=== PATIENT | female | born 1970 | race African-American/Black ===

== ENCOUNTER → 2017-08-22 | Outpatient (CLI) | payer MEDICARE ==
[~2017-08-22] MED LIST: ATIVAN 1MG T1 MG/TAB; COENZYME Q-10100 MG; DEPAKOTE500 MG PO; DESYREL 50MG50 MG PO; DUO-KAPS1 CAP; FLEXERIL 1010 MG/TAB; FLEXERIL 1010 MG/TAB PO; FLEXERIL10 MG PO; IMITREX 25MG TA25 MG; IRON324 M1; LEVAQUIN 750MG750 M1 PO; NORCO 325 MG-51 TAB PO; OMEGA 31000 MG; POTASSIUM75 MG; STOOL SOFTENER100 M2; TOPAMAX 100MG100 M1 PO; ULTRAM 50MG TAB50 MG; VENTOLIN0.09 MG IH; VITAMIN C500 MG; VITAMIN D8000 IU/ML; ZOCOR 20MG20 MG PO
== END ==
LOC: SUN.DIA 15:01
DX: E11.9 Type 2 diabetes mellitus without complications (principal); E78.5 Hyperlipidemia, unspecified; E66.9 Obesity, unspecified; Z68.29 Body mass index [BMI] 29.0-29.9, adult; Z71.3 Dietary counseling and surveillance
CPT/HCPCS: G0108

== ENCOUNTER 2017-08-26 18:36 | Emergency (ER) | payer MEDICARE ==
[~2017-08-26] VITALS: Ht 170.2 cm; Wt 85.0 kg
[2017-08-26 19:02] VITALS: TEMP 97.7
[2017-08-26] MEDS ORDERED: GLUCOPHAGE1000 MG PO (19:08)
[2017-08-26 22:05] VITALS: BP 140/95; PULSE 91
== END 2017-08-26 22:09 | disposition home or self-care (01) ==
LOC: COL.ER 18:36
DX: G43.909 Migraine, unspecified, not intractable, without status migrainosus (principal); E11.9 Type 2 diabetes mellitus without complications; I10 Essential (primary) hypertension; Z85.848 Personal history of malignant neoplasm of other parts of nervous tissue; Z79.84 Long term (current) use of oral hypoglycemic drugs
CPT/HCPCS: J0780; J1200; J3475; J7030

== ENCOUNTER → 2017-08-30 | Outpatient (CLI) | payer MEDICARE ==
[~2017-08-30] MED LIST changes: +GLUCOPHAGE1000 MG PO
== END ==
LOC: SUN.DIA 11:01
DX: E11.9 Type 2 diabetes mellitus without complications (principal); E78.5 Hyperlipidemia, unspecified; E66.9 Obesity, unspecified; Z68.29 Body mass index [BMI] 29.0-29.9, adult; Z71.3 Dietary counseling and surveillance

== ENCOUNTER → 2017-09-27 | Outpatient (CLI) | payer MEDICARE | LOC: SUN.DIA 12:06 | DX: E11.9 Type 2 diabetes mellitus without complications (principal); E78.5 Hyperlipidemia, unspecified; E66.9 Obesity, unspecified; Z68.29 Body mass index [BMI] 29.0-29.9, adult; Z71.3 Dietary counseling and surveillance ==

== ENCOUNTER 2017-10-12 23:42 | Emergency (ER) | payer MEDICARE ==
[~2017-10-12] VITALS: Ht 170.2 cm; Wt 85.0 kg
[2017-10-12 23:53] VITALS: TEMP 97
[2017-10-12] MEDS ORDERED: IMITREX50 MG PO (23:58)
[2017-10-13 03:31] VITALS: BP 164/104; PULSE 80
== END 2017-10-13 03:31 | disposition home or self-care (01) ==
LOC: COL.ER 23:42
DX: G43.909 Migraine, unspecified, not intractable, without status migrainosus (principal); E11.9 Type 2 diabetes mellitus without complications; E78.5 Hyperlipidemia, unspecified; Z79.84 Long term (current) use of oral hypoglycemic drugs
CPT/HCPCS: J0780; J1200; J1885; J3475; J7030

== ENCOUNTER 2018-10-19 17:34 | Emergency (ER) | payer MEDICARE ==
[~2018-10-19] VITALS: Ht 170.2 cm; Wt 81.8 kg
[~2018-10-19 17:34] MED LIST changes: +IMITREX50 MG PO
[2018-10-19 18:12] VITALS: BP 186/105; PULSE 101; TEMP 98.5
== END 2018-10-19 22:06 | disposition left against medical advice (07) ==
LOC: COL.ER 17:34
DX: G43.909 Migraine, unspecified, not intractable, without status migrainosus (principal); Z79.84 Long term (current) use of oral hypoglycemic drugs

== ENCOUNTER → 2021-03-10 | Outpatient (CLI) | payer MEDICARE | LOC: DIA.ED 12:41 | DX: E11.65 Type 2 diabetes mellitus with hyperglycemia (principal); Z79.4 Long term (current) use of insulin; E78.5 Hyperlipidemia, unspecified | CPT/HCPCS: G0108 ==

== ENCOUNTER 2022-11-10 14:30 | Outpatient (RCR) | payer OTHER | END 2022-11-11 | disposition home or self-care (01) | LOC: MKS.ESL.PT | DX: M54.42 Lumbago with sciatica, left side (principal); G89.29 Other chronic pain; I69.30 Unspecified sequelae of cerebral infarction ==

== ENCOUNTER 2022-12-08 13:15 | Outpatient (RCR) | payer MEDICARE | END 2022-12-11 | disposition home or self-care (01) | LOC: MKS.ESL.PT | DX: M54.42 Lumbago with sciatica, left side (principal); I69.30 Unspecified sequelae of cerebral infarction; G89.29 Other chronic pain ==